=== PATIENT | female | born 1985 | race American Indian/Alaskan Native ===

== ENCOUNTER 2019-09-25 21:56 | Emergency (ER) | payer SELFPAY ==
[2019-09-25] MEDS ORDERED: ALBUTEROL 2.5 MG/3 ML NEBU IH ONE (22:21)
[2019-09-25] MEDS ORDERED: predniSONE 20 MG TAB PO ONE (22:21)
[2019-09-25] MEDS ORDERED: IPRATROPIUM 0.02% NEBU 2.5 ML IH ONE (22:21)
--- NOTE | 2019-09-25 22:21 | Emergency Department Report ---
Blank Doc - Documentation Documentation: 34-year-old female that presents with cough and wheezing. This initial assessment/diagnostic orders/clinical plan/treatment(s) is/are subject to change based on patient's health status, clinical progression and re- assessment by fellow clinical providers in the ED. Further treatment and workup at subsequent clinical providers discretion. Patient/guardians urged not to elope from the ED as their condition may be serious if not clinically assessed and managed. Initial orders include: 1- Patient sent to [facility] for further evaluation and treatment 2- CXR 3- breathing treatment/steroids
--- NOTE | 2019-09-25 22:50 | XRay Report ---
CHEST 2 VIEWS INDICATION / CLINICAL INFORMATION: cough. COMPARISON: None available. FINDINGS: SUPPORT DEVICES: None. HEART / MEDIASTINUM: No significant abnormality. LUNGS / PLEURA: No significant pulmonary or pleural abnormality. No pneumothorax. ADDITIONAL FINDINGS: No significant additional findings. IMPRESSION: 1. No acute findings. Signer Name: Abel Harrell MD Signed: 09/25/2019 10:45 PM Workstation Name: [id number]
--- NOTE | 2019-09-26 00:26 | Emergency Department Report ---
Minor Respiratory - HPI Chief Complaint: Adult Asthma Stated Complaint: ASTHMA, CHEST PAIN, SINUS INFECTION Time Seen by Provider: 09/25/19 22:19 Duration: 1 Day Pain Location: Throat, Chest Minor Respiratory: Yes Sore Throat, Yes Able to Tolerate Fluids, No Rhinorrhea, No Ear Pain, No Cough, No Sick Contacts, No Hemoptysis, No Chest Pain, No Shortness of Breath, No Fever Other History: This is a 34-year-old female with a history of asthma presents to ED complaining of throat pain and asthma exacerbation that started today. Patient states she is out of her medication needs a refill. Patient admits intermittent coughing for the past 2 days ED Review of Systems ROS: Stated complaint: ASTHMA, CHEST PAIN, SINUS INFECTION Other details as noted in HPI Comment: All other systems reviewed and negative ED Past Medical Hx - Past Medical History Previous Medical History?: Yes Hx Asthma: Yes Additional medical history: obesity - Surgical History Past Surgical History?: No - Social History Smoking Status: Never Smoker Substance Use Type: None - Medications Home Medications: Home Medications Medication Instructions Recorded Confirmed Last Taken Type ALBUTEROL Inhaler (OR & NICU) 2 puff IH QID PRN #8.5 gram 09/26/19 Unknown Rx [ProAir HFA Inhaler] ALBUTEROL NEB's [Proventil 0.083% 2.5 mg IH TID PRN #1 pack 09/26/19 Unknown Rx NEBS] Amoxicillin [Amoxicillin TAB] 875 mg PO BID #20 tablet 09/26/19 Unknown Rx Ibuprofen [Motrin] 800 mg PO Q8HR #30 tablet 09/26/19 Unknown Rx predniSONE [Deltasone] 10 mg PO QDAY #5 tab 09/26/19 Unknown Rx Minor Respiratory Exam - Exam General: Vital signs noted. No distress. Alert and acting appropriately. HEENT: Yes Pharyngeal Erythema (right tonsil swelling), Yes Moist Mucous Membranes, No Pharyngeal Exudates, No Rhinorrhea, No Conjuctival Injection, No Frontal Tenderness, No Maxillary Tenderness Ear: Neither TM Bulge, Neither TM Erythema, Neither EAC Pain, Neither EAC Discharge Neck: Yes Supple, No Adenopathy Lungs: Yes Good Air Exchange, No Wheezes, No Ronchi, No Stridor, No Cough, No Labored Respirations, No Retractions, No Use of Accessory Muscles, No Other Abnormal Lung Sounds Heart: Yes Regular, No Murmur Abdomen: Yes Normal Bowel Sounds, No Tenderness, No Peritoneal Signs Skin: No Rash, No Edema Neurologic: Alert and oriented, no deficits. Musculoskeletal: Unremarkable. ED Course Vital Signs 09/25/19 23:55 Pulse Rate [ 88 Anterior] Respiratory 18 Rate [Anterior] ED Medical Decision Making - Lab Data Vital Signs 09/25/19 09/25/19 09/26/19 22:08 23:55 00:40 Temperature 98.9 F Pulse Rate 102 H 102 H Pulse Rate [ 88 Anterior] Respiratory 14 17 Rate Respiratory 18 Rate [Anterior] Blood Pressure 146/99 O2 Sat by Pulse 95 99 Oximetry - Radiology Data Radiology results: report reviewed, image reviewed CHEST 2 VIEWS INDICATION / CLINICAL INFORMATION: cough. COMPARISON: None available. FINDINGS: SUPPORT DEVICES: None. HEART / MEDIASTINUM: No significant abnormality. LUNGS / PLEURA: No significant pulmonary or pleural abnormality. No pneumothorax. ADDITIONAL FINDINGS: No significant additional findings. IMPRESSION: 1. No acute findings. Signer Name: Abel Harrell MD Signed: 09/25/2019 10:45 PM Workstation Name: [id number] Transcribed By: PATY Dictated By: Abel Harrell MD Electronically Authenticated By: Abel Harrell MD Signed Date/Time: 09/25/19 4524 - Medical Decision Making 34-year-old female presents with asthma exacerbation (Mild) with pharyngitis ED course: Patient received a breathing treatment, prednisone, cough suppressant in the ED. Chest x-ray ordered, chest x-ray shows no acute findings. Patient had no respiratory distress in the ED. Post treatment evaluation: No wheezing heard, no use of accessory muscles, I discussed with the patient to follow up with her primary care physician. I discussed with the patient will be going home on with albuterol inhaler as well as nebulizer Vital signs are normalized, patient is saturation at 99% on room air. I discussed with the patient is symptoms worsen to return to ED immediately. Critical care attestation.: If time is entered above; I have spent that time in minutes in the direct care of this critically ill patient, excluding procedure time. ED Disposition Clinical Impression: Asthma exacerbation, Acute erythematous tonsillitis Disposition: -01 TO HOME OR SELFCARE Is pt being admited?: No Does the pt Need Aspirin: No Condition: Stable Instructions: Asthma (ED), Pharyngitis (ED) Additional Instructions: Make sure to follow up with the primary care physician as discussed. Take all your medications as you've been prescribed. If you have any worsening symptoms or develop new symptoms please return to ED immediately. Prescriptions: Amoxicillin [Amoxicillin TAB] 875 mg PO BID #20 tablet predniSONE [Deltasone] 10 mg PO QDAY #5 tab Ibuprofen [Motrin] 800 mg PO Q8HR #30 tablet ALBUTEROL Inhaler (OR & NICU) [ProAir HFA Inhaler] 2 puff IH QID PRN #8.5 gram PRN Reason: Shortness Of Breath ALBUTEROL NEB's [Proventil 0.083% NEBS] 2.5 mg IH TID PRN #1 pack PRN Reason: Wheezing Referrals: PRIMARY CARE, [Primary Care Provider] - 3-5 Days [facility] [Outside] - 3-5 Days [facility] [Outside] - 3-5 Days Forms: Accompanied Note, Work/School Release Form(ED) Time of Disposition: 00:27
[2019-09-26 01:01] VITALS: BP 146/99
== END 2019-09-26 00:40 | disposition home or self-care (01) ==
LOC: ED 21:56
DX: J45.901 Unspecified asthma with (acute) exacerbation (principal); J03.90 Acute tonsillitis, unspecified; Z79.899 Other long term (current) drug therapy
CPT/HCPCS: 71046; 94640; 99283; J7512; 94644